=== PATIENT | male | born 1985 | race Caucasian/White ===

== ENCOUNTER → 2017-08-27 | Outpatient (CLI) | payer BC | LOC: LAB 09:24 | DX: Z82.49 Family history of ischemic heart disease and other diseases of the circulatory system (principal); Z13.1 Encounter for screening for diabetes mellitus ==

== ENCOUNTER → 2018-03-11 | Outpatient (CLI) | payer BC | LOC: MAMMO 13:11 | DX: R22.9 Localized swelling, mass and lump, unspecified (principal) ==

== ENCOUNTER → 2018-09-09 | Outpatient (CLI) | payer BC ==
[2018-09-09 08:18] LABS: CALCIUM 8.9 mg/dL (8.4-10.2); POTASSIUM 4.2 mmol/L (3.6-5.0); TOTAL PROTEIN 6.5 g/dL (6.3-8.2)
== END ==
LOC: LAB 07:09
PROVIDERS: Family Medicine
DX: Z13.1 Encounter for screening for diabetes mellitus (principal); Z82.49 Family history of ischemic heart disease and other diseases of the circulatory system

== ENCOUNTER → 2021-03-06 | Outpatient (CLI) | payer BC ==
[2021-03-06 09:55] LABS: ALBUMIN 4.4 g/dL (3.5-5.0); POTASSIUM 4.4 mmol/L (3.5-5.1)
[2021-03-06 09:56] LABS: CALCIUM 8.9 mg/dL (8.3-10.5)
[2021-03-06 09:57] LABS: TOTAL PROTEIN 6.7 g/dL (6.4-8.3)
[2021-03-06 09:59] LABS: TOTAL BILIRUBIN 0.7 mg/dL (0.2-1.2)
== END ==
LOC: LAB 09:27
PROVIDERS: Family Medicine
DX: Z00.00 Encounter for general adult medical examination without abnormal findings (principal)